=== PATIENT | male | born 1970 | race Caucasian/White ===

== ENCOUNTER 2024-07-20 10:34 | Emergency (ER) | payer SELFPAY ==
[2024-07-20 10:39] VITALS: PULSE 110; TEMP 36.8; O2SAT 99; BMI 19.4
[2024-07-20 11:10] VITALS: BP 150/100
--- NOTE | 2024-07-20 11:20 | ED_ITS ---
HPI HPI - General Adult General Chief complaint: Back Pain/Injury Stated complaint: BACK PAIN Time Seen by Provider: 07/20/24 11:12 Source: patient Mode of arrival: walk-in History of Present Illness HPI narrative: Patient is a 53-year-old male who is presenting to the ER today with chief complaint of acute on chronic lower bilateral back pain. Patient has just driven here from [place] for the past 2 days. Patient left Tuesday morning, he arrived locally late last night. He checked into a [employer], soaked in a hot tub, and laid down. Patient is coming in because his pain is worse today than it is last night. Patient was driving home from [place]. Patient has a history of rods and screws in his lumbar spine. Patient lived in [place] for lengthy [place] time. Patient is now driving back and moving to the local area. Patient did have a PCP in [place]. The PCP in [place] was going to establish him with a spinal neurosurgeon and he needs to have additional surgery on his lower back. Patient took 2 Aleve last evening, nothing today for pain. Patient's son is at bedside, he can drive patient home. Patient has no loss of bowel or bladder, no radiculopathy or paresthesias into lower extremities. Patient had no fall, no injury. Patient believes that his acute on chronic pain has started secondary to sitting in the car for lengthy time Tuesday and driving home from [place]. Patient also has nausea secondary to pain. No chest pain shortness of breath abdominal pain. No signs of saddle esthesia cauda equina. All systems are negative except as noted/marked. All systems reviewed and otherwise negative. Nurses note and vital signs reviewed and patient is not hypoxic. Patient is hypertensive, no headache, no chest pain or shortness of breath. No syncopal episodes. General: The patient appears well and in no apparent distress. Patient is resting uncomfortably on cart. Patient is not toxic, lethargic, or listless Skin: Warm, dry, no pallor noted. There is no rash noted. No petechiae, purpura. Head: Normocephalic, atraumatic Eye: Normal conjunctiva, no drainage, EOMI. PERRL Ears, Nose, Mouth, and Throat: oral mucosa is moist. Nares patent. Mouth without vesicles. Cardiovascular: Regular Rate and Rhythm, no murmur, gallop, rub Respiratory: Patient is in no distress, no accessory muscle use, lungs are clear to auscultation, no wheezing, rales or rhonchi Back: Moderate tenderness to palpation to bilateral lumbar paraspinal area, soft tissue bogginess, no rash, chronic mild mid lumbar tenderness to palpation from L2 approximately S1, no step-off, otherwise the rest of his back is non-tender, no CVA tenderness bilaterally to percussion. No CT LS midline pain besides above a forementioned GI: no tenderness to palpation, no masses appreciated. No rebound, guarding, or rigidity noted. No distention. No pulsatile mass, no flank pain bilateral. Positive straight leg raising test bilateral, no midepigastric tenderness palpation, patient denies any pain to penis or testicles, no saddle anesthesia to lower extremities Musculoskeletal: Patient has full range of motion of all of the extremities, no motor, sensory, or focal neurological deficits Neurological: A&O x4, normal speech Psychiatric: Cooperative Related Data Home Medications ?Medication ?Instructions ?Recorded ?Confirmed lisinopril 10 mg tablet 10 mg PO DAILY 07/20/24 0512/06 Previous Rx's ?Medication ?Instructions ?Recorded hydrocodone 5 mg-acetaminophen 325 1 tab PO Q4H PRN pa in #6 tabs 07/20/24 mg tablet methocarbamol 500 mg tablet 500 mg PO Q8H PRN muscle p ain #10 07/20/24 tabs ondansetron 4 mg disintegrating 4 mg PO Q4H PRN nausea and 07/20/24 tablet vomiting 3 days #6 tabs Allergies Allergy/AdvReac Type Severity Reaction Status Date / Time No Known Drug Allergies Allergy Verified 07/20/24 10:38 Opioid HPI Opioid Management Most Recent Opioid Data: Last Pain Scale 10 Today, 11:26 Last MAR Pain Assessment Today, 11:25 PFSH PFSH Social History Little interest or pleasure in doing things: not at all Feeling down, depressed, or hopeless: not at all Exam Constitutional Vital Signs, click to edit/add: Last Vital Signs Temp 98.2 F 07/20/24 10:39 Pulse 110 H 07/20/24 10:39 Resp 20 07/20/24 10:39 BP 150/100 H 07/20/24 11:10 Pulse Ox 99 07/20/24 10:39 O2 Del Method Room Air 07/20/24 10:39 Course Vital Signs Vital signs: Vital Signs Temperature 98.2 F 07/20/24 10:39 Pulse Rate 110 H 07/20/24 10:39 Respiratory Rate 20 07/20/24 10:39 Pulse Oximetry 99 07/20/24 10:39 Oxygen Delivery Method Room Air 07/20/24 10:39 Temperature 98.2 F 07/20/24 10:39 Pulse Rate 110 H 07/20/24 10:39 Respiratory Rate 20 07/20/24 10:39 Blood Pressure 150/100 H 07/20/24 11:10 Pulse Oximetry 99 07/20/24 10:39 Oxygen Delivery Method Room Air 07/20/24 10:39 Medical Decision Making MDM Narrative Medical decision making narrative: Patient seen and examined: Acute on chronic lumbar pain secondary to 2-day drive home from [place] Differential diagnosis includes but is not limited to: Lumbar pain, lumbar strain, lumbar fracture, kidney stone, UTI, pyelonephritis Shared decision making: I discussed with the patient the necessary laboratory findings and radiological findings. Social barriers to healthcare: There are no food insecurities, there is no issue with transportation, there are no insurance barriers. Disposition: I discussed with the patient treating symptoms. Patient states he believes this is soft tissue muscle skeletal pain agrees that no imaging is needed at this time. Patient is going to be reestablished with his PCP and be referred to the spinal surgeon that he is going to see previously because he knows that he needs another back surgery. Patient was given Dr. Shirley name and number. Patient has no signs or symptoms of saddle anesthesia or cauda equina. No pulsatile mass, no abdominal pain. Patient has nausea secondary to pain. Patient has his PCP that he is in a call again. Patient was living in [place] for a while, patient had some insurance issues. Patient is now taking care of his aunts 3 rental properties and was given a house that he is not living in locally. Discharge Plan Discharge Chief Complaint: Back Pain/Injury Clinical Impression: Lumbar pain Patient Disposition: Home, Self-Care Time of Disposition Decision: 11:16 Condition: Fair Prescriptions / Home Meds: New methocarbamol 500 mg tablet 500 mg PO Q8H PRN (Reason: muscle pain) Qty: 10 0RF hydrocodone-acetaminophen 5-325 mg tablet 1 tab PO Q4H PRN (Reason: pain) Qty: 6 0RF ondansetron 4 mg tablet,disintegrating 4 mg PO Q4H PRN (Reason: nausea and vomiting) 3 Days Qty: 6 0RF No Action lisinopril 10 mg tablet 10 mg PO DAILY Print Language: Kuwaiti Instructions: Low Back Strain (ED), Acute Low Back Pain (ED), Lower Back Exercises (ED) Additional Instructions: Use ice 20 minutes on, 20 minutes off. Do not use heat. Do this for the next 3 to 5 days. Do lumbar stretching exercises 3-4 times a day for the next 5 to 7 days. Alternate Tylenol and either Motrin, Advil, or ibuprofen every 4 hours to help with pain. If you are having severe pain, substitute a [place] tablet instead of Tylenol. Do not take Tylenol and [place] at the same time, you may actually take too much Tylenol at 1 setting or in 1 day. Maximum Tylenol dose of Tylenol is 3000 mg a day. Maximum dose of either Motrin, Advil, or ibuprofen is 2400 mg a day. Referrals: Physician,Non-Staff, [Primary Care Provider] - 1 week Camille Tao MD [Physician] - 1 week
[2024-07-20] MEDS: HYDROCODONE/ACET 5-325 MG TABLET 1 TAB PO (11:25)
[2024-07-20] MEDS: ORPHENADRINE 60 MG/2 ML VIAL IM (11:26)
[2024-07-20] MEDS: KETOROLAC TROMETHAMINE 60 MG/2 ML VIAL IM (11:26)
[2024-07-20] MEDS: ONDANSETRON 4 MG RAPDIS TABLET SL (11:30)
== END 2024-07-20 11:45 | disposition home or self-care (01) ==
PROVIDERS: Emergency Provider Emergency Medicine
DX: M54.50 Low back pain, unspecified (principal); I10 Essential (primary) hypertension
CPT/HCPCS: 96372; 99284; J1885; J2360; Q0162

== ENCOUNTER 2024-10-09 08:39 | Emergency (ER) | payer SELFPAY ==
[2024-10-09 08:42] VITALS: BP 200/100; PULSE 76; TEMP 36.6; O2SAT 98; BMI 18.7
--- NOTE | 2024-10-09 09:00 | XR_ITS ---
The [address] [address] Patient Name: PRITI ZAIDI MRN: [id number] date: 1970 Sex: M Assigned Patient Location: ER Current Patient Location: ER Accession/Order Number: [id number] Exam Date: 10/09/2024 09:46 Report Date: 10/09/2024 09:48 At the request of: CADEN MCDANIEL MD Procedure: XR lumbar spine 2-3V LUMBAR SPINE - 2 views COMPARISON: None CLINICAL DATA: Chronic back pain with recent worsening. No specific injury. Prior fusion. AP and lateral views were obtained. There is mild dextroscoliotic curvature. There is prior laminectomy and fusion with posterior rods, pedicle screws and interbody fusion device at L4-5. The hardware appears intact and in appropriate position. No acute compression fractures are identified. There is slight multilevel retrolisthesis throughout the unfused vertebral levels. There is disc space narrowing at L1-2 and L3-4. Endplate spurring is seen. There is lower lumbar facet disease. The SI joints are intact. No paraspinal soft tissue abnormalities are noted. XR/XR lumbar spine 2-3V IMPRESSION: SCOLIOSIS WITH POSTOPERATIVE AND DEGENERATIVE CHANGES. NO ACUTE BONY FINDINGS. Impression dictated by: Yovana Maradiaga M.D. 10/09/2024 9:48 AM Dictation Location: [place] [address] Electronically authenticated by: [id number] Y Date: 10/09/2024 09:48
--- NOTE | 2024-10-09 09:01 | ED.GENADUL1 ---
HPI HPI - General Adult General Chief complaint: Back Pain/Injury Stated complaint: BACK PAIN Time Seen by Provider: 10/09/24 08:57 Source: patient Mode of arrival: walk-in Limitations: no limitations History of Present Illness HPI narrative: 53-year-old male presented to the emergency department for lower back pain for the last week. Patient gives no history of any injury. 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 He has a history of back issues and had previous surgery. The pain goes into his right buttock. No weakness or numbness. The pain is worse in certain positions. Related Data Home Medications ?Medication ?Instructions ?Recorded ?Confirmed lisinopril 10 mg tablet 10 mg PO DAILY 07/20/24 10/09/24 Previous Rx's ?Medication ?Instructions ?Recorded methocarbamol 500 mg tablet 500 mg PO Q8H PRN muscle pain #10 07/20/24 tabs hydrocodone 5 mg-acetaminophen 325 1 tab PO Q6H PRN pain 5 days #20 10/09/24 mg tablet tabs methocarbamol 750 mg tablet 750 mg PO Q8H #20 tabs 10/09/24 Allergies Allergy/AdvReac Type Severity Reaction Status Date / Time No Known Drug Allergies Allergy Verified 10/09/24 08:45 Opioid HPI Opioid Management Most Recent Opioid Data: Last Pain Scale 10 Today, 09:07 Last MAR Pain Assessment Today, 09:07 Review of Systems ROS Narrative A ten point review of systems is negative except as noted above. PFSH PFSH Social History Little interest or pleasure in doing things: not at all Feeling down, depressed, or hopeless: not at all Exam Narrative Exam Narrative: Nurses note and vital signs reviewed and patient is not hypoxic. General: The patient appears uncomfortable. Skin: Warm, dry, no pallor noted. There is no rash noted. Head: Normocephalic, atraumatic Eye: Normal conjunctiva, no drainage Ears, Nose, Mouth, and Throat: oral mucosa is moist. Nares patent. Cardiovascular: Regular Rate and Rhythm Respiratory: Patient is in no distress, no accessory muscle use, lungs are clear to auscultation, no wheezing, rales or rhonchi Back: No bruise or rash. GI: Soft and nontender Musculoskeletal: The patient has no evidence of calf tenderness, no pitting edema, symmetrical pulses noted bilaterally Neurological: A&O, normal speech Psychiatric: Cooperative Constitutional Vital Signs, click to edit/add: Last Vital Signs Temp 97.9 F 10/09/24 08:42 Pulse 76 10/09/24 08:42 Resp 18 10/09/24 08:42 BP 200/100 H 10/09/24 08:42 Pulse Ox 98 10/09/24 08:42 O2 Del Method Room Air 10/09/24 08:42 Course Vital Signs Vital signs: Vital Signs Temperature 97.9 F 10/09/24 08:42 Pulse Rate 76 10/09/24 08:42 Respiratory Rate 18 10/09/24 08:42 Blood Pressure 200/100 H 10/09/24 08:42 Pulse Oximetry 98 10/09/24 08:42 Oxygen Delivery Method Room Air 10/09/24 08:42 Temperature 97.9 F 10/09/24 08:42 Pulse Rate 76 10/09/24 08:42 Respiratory Rate 18 10/09/24 08:42 Blood Pressure 200/100 H 10/09/24 08:42 Pulse Oximetry 98 10/09/24 08:42 Oxygen Delivery Method Room Air 10/09/24 08:42 Medical Decision Making MDM Narrative Medical decision making narrative: X-ray findings were discussed with the patient and he will follow-up with his physician. Treatment diagnosis and follow-up were discussed thoroughly. Differential Diagnosis Differential Diagnosis: Degenerative disc disease, lumbar radiculopathy, compression fracture Imaging Data Lumbar x-rays: Radiologist's impression: ITS Impressions Lumbar Spine X-Ray 10/09/24 09:00 IMPRESSION: SCOLIOSIS WITH POSTOPERATIVE AND DEGENERATIVE CHANGES. NO ACUTE BONY FINDINGS. Impression dictated by: Yovana Maradiaga M.D. 10/09/2024 9:48 AM Dictation Location: [place] [address] Electronically authenticated by: [id number] Y Date: 10/09/2024 09:48 Discharge Plan Discharge Chief Complaint: Back Pain/Injury Clinical Impression: Low back pain Patient Disposition: Home, Self-Care Time of Disposition Decision: 09:53 Condition: Good Mode of Transportation: Private Vehicle Prescriptions / Home Meds: New hydrocodone-acetaminophen 5-325 mg tablet 1 tab PO Q6H PRN (Reason: pain) 5 Days Qty: 20 0RF methocarbamol 750 mg tablet 750 mg PO Q8H Qty: 20 0RF No Action lisinopril 10 mg tablet 10 mg PO DAILY methocarbamol 500 mg tablet 500 mg PO Q8H PRN (Reason: muscle pain) Qty: 10 0RF Print Language: Slovak Instructions: Acute Low Back Pain (ED) Referrals: Magda Johnson [Primary Care Provider] - 1 week
[2024-10-09] MEDS: ORPHENADRINE 60 MG/2 ML VIAL IM (09:07)
[2024-10-09] MEDS: KETOROLAC TROMETHAMINE 60 MG/2 ML VIAL IM (09:07)
[2024-10-09 10:00] VITALS: BP 160/88
== END 2024-10-09 10:00 | disposition home or self-care (01) ==
PROVIDERS: Emergency Provider Emergency Medicine; PCP Nurse Practitioner Family
DX: M54.50 Low back pain, unspecified (principal); M41.86 Other forms of scoliosis, lumbar region; M51.369 Other intervertebral disc degeneration, lumbar region without mention of lumbar back pain or lower extremity pain
CPT/HCPCS: 72100; 96372; 99284; J1885; J2360

== ENCOUNTER 2024-10-15 13:34 | Outpatient (OUT) | payer MEDICAID, SELFPAY ==
--- NOTE | 2024-10-15 14:47 | PM.CN ---
Consult Note: HPI Data of Consult Patient: new to practice Consult date: 10/15/24 Requesting Physician: Van Jones MD Primary Care Provider: Magda Johsnon Consult Narrative Reason for consult: low back pain Narrative: 53yom who presents for evaluation. worsening low back pain, previous history of lumbar fusion. states that pain has been worsening in past several months. lumbar xr reviewed, shows multilevel degenerative changes above and below hardware at l4-5, but no acute findings. uses thc pen 4x/day. uses robaxin. denies adverse med side effects. cc:: CC: Van Jones MD Review of Systems ROS Status of ROS 10 or more systems reviewed and unremarkable except as noted in history and below PFSH PFSH Social History Little interest or pleasure in doing things: not at all Feeling down, depressed, or hopeless: not at all Meds Home Medications and Allergies Home Medications ?Medication ?Instructions ?Recorded ?Confirmed ?Type lisinopril 10 mg tablet 10 mg PO DAILY 07/20/24 10/09/24 History methocarbamol 500 mg tablet 500 mg PO Q8H PRN muscle pain #10 07/20/24 10/09/24 Rx tabs hydrocodone 5 mg-acetaminophen 325 1 tab PO Q6H PRN pain 5 days #20 10/09/24 Rx mg tablet tabs methocarbamol 750 mg tablet 750 mg PO Q8H #20 tabs 10/09/24 Rx Allergies Allergy/AdvReac Type Severity Reaction Status Date / Time No Known Drug Allergies Allergy Verified 10/09/24 08:45 Exam Narrative Exam Narrative: Psych-alert and oriented x 3. Attentive and appropriate, constitutionally normal, displays normal mood and affect per situation.? There are no obvious deficits in memory, reasoning, or intellect.? Skin-no obvious rashes, bruising, erythema noted to the patient's area of pain. Extremities- extremities are warm with minimal edema and palpable pulses. Lumbar-no significant tenderness to palpation noted in the lumbar spine and paraspinal musculature.? Pain is elicited with extension, and lateral rotation of the lumbar spine. Range of motion is slightly diminished with these motions due to pain. Coordination remains intact.? Gait remains non-antalgic. Assessment and Plan Assessment and Plan (1) Low back pain: Qualifiers: Chronicity: chronic Back pain laterality: unspecified Sciatica presence: with sciatica Sciatica laterality: sciatica of right side Qualified Code(s): M54.41 - Lumbago with sciatica, right side; G89.29 - Other chronic pain Plan 53yom who presents for evaluation. failed conservative measures. imaging reviewed, as noted above. discussed that given his symptoms and surgical hx, would be prudent to obtain lumbar ct myelogram for further information. also discussed that i would order lyrica 50mg tid and lodine 400mg bid prn, as well as medrol dosepak, for pain relief. however, patient states that he did not want to waste his time with the above plan, as he was interested in opioid therapy only. discussed that given his thc use 4x/day, he would not be a candidate for opioid therapy. patient respectfully declined following through with our care plan. may follow up if he desires.
== END 2024-10-15 13:35 | disposition home or self-care (01) ==
LOC: PM 13:38
PROVIDERS: PCP Nurse Practitioner Family; Visit Provider Anesthesiology
DX: M54.41 Lumbago with sciatica, right side (principal); G89.29 Other chronic pain
CPT/HCPCS: G0463

== ENCOUNTER 2025-02-05 13:26 | Outpatient (OUT) | payer MEDICAID, SELFPAY ==
--- NOTE | 2025-02-05 13:38 | CT_ITS ---
The [address] [address] Patient Name: PRITI ZAIDI MRN: [id number] date: 1970 Sex: M Assigned Patient Location: CT Current Patient Location: CT Accession/Order Number: [id number] Exam Date: 02/05/2025 13:48 Report Date: 02/05/2025 14:22 At the request of: LACHELLE CHAHAL APRN Procedure: CT lumbar spine wo con CT lumbar spine wo con 02/05/2025 1:57 PM History:Chronic low back pain radiating into both hips. TECHNIQUE: Multi detector CT axial slices of the lumbar spine were obtained without IV contrast. Volumetric acquisition sagittal, coronal, and 3-D reconstructions were performed and reviewed on a separate workstation. CT was performed with one or more of the following dose reduction techniques: Automated exposure control, adjustment of the mA and/or kV according to patient size, or use of iterative reconstruction technique. COMPARISON: Lumbar spine 10/09/2024. FINDINGS: Posterior hardware fixation L4-L5 without hardware complication. Vertebral body heights appear maintained. Endplate and facet joint degenerative changes with moderate disc space narrowing L1-L2. There is approximately 3 mm retrolisthesis of L1 on L2. SI joints demonstrate degenerative change. No paraspinal mass. Visualized retroperitoneum demonstrates no acute findings. CT/CT lumbar spine wo con IMPRESSION: No acute findings. No hardware complication. Moderate degenerative disc disease L1-L2. Impression dictated by: Luis Garsia Jr., D.O. 02/05/2025 2:22 PM Dictation Location: [place] [address] Electronically authenticated by: [id number] Y Date: 02/05/2025 14:22
== END 2025-02-05 13:27 | disposition home or self-care (01) ==
PROVIDERS: PCP Nurse Practitioner Family; Visit Provider Nurse Practitioner Family
DX: M51.362 Other intervertebral disc degeneration, lumbar region with discogenic back pain and lower extremity pain (principal); M54.16 Radiculopathy, lumbar region; M48.062 Spinal stenosis, lumbar region with neurogenic claudication
CPT/HCPCS: 72131; 76376

== ENCOUNTER 2025-03-02 13:59 | Emergency (ER) | payer SELFPAY ==
--- OUTSIDE RECORDS SUMMARY | 2025-02-19 15:40 | XMS_ITS | Encounter Summary ---
Author Organization [facility] tem Address [id number] [address] [place] [address] Care Team Providers Care Photo Lab Technician Name Role Phone Angel Gutierrez CARPET TECHNICIAN-PSYCHOLOGY TECHNICIAN Primary Care Provider + Reason for Visit * ReasonComments2 week f/u Encounter Details DateTypeDepartmentCare Team (Latest Contact Info)Cvafuumesgm97/09/2025 3:40 PM ESTOffice Visit [facility] [address] [place] [address] Angel Gutierrez, CARPET TECHNICIAN-PSYCHOLOGY TECHNICIAN [address] [place] [address] Degenerative disc disease (DDD) of lumbar region with discogenic back pain and leg pain (Primary Dx); Lumbar radiculopathy; Spinal stenosis, lumbar region with neurogenic claudication; Primary hypertension Social History Tobacco UseTypesPacks/DayYears UsedDateSmoking Tobacco: Every DayCigarettes Smokeless Tobacco: NeverAlcohol UseStandard Drinks/WeekCommentsNever0 (1 standard drink = 0.6 oz pure alcohol)PHQ-2AnswerDate RecordedTotal Score0 5AUDIT-CAnswerDate RecordedQ1: How often do you have a drink containing alcohol?Never01/29/2025Q2: How many drinks containing alcohol do you have on a typical day when you are drinking?Patient does not drink01/29/2025Q3: How often do you have six or more drinks on one occasion?Never5ChildcareAnswer Date DnzpbnxsIjrvzscmjWxljwyd92/12/2019EmploymentAnswerDate RecordedEmployment Rzhdgja3508/23/2018Hunger ScreeningAnswerDate RecordedWithin the past 12 months we worried whether our food would run out before we got money to buy more.Never True02/19/2025Within the past 12 months the food we bought just didn't last and we didn't have money to get more.Never True02/19/2025Sex and Gender Information ValueDate RecordedSex Assigned at BirthNot on fileLegal PrjVhhq0210/17/2014 11:38 AM EDTGender IdentityNot on fileSexual OrientationNot on filedocumented as of this encounter Last Filed Vital Signs Vital SignReadingTime TakenCommentsBlood Ccdpxpmw734/9802/19/2025 3:30 PM EST Rlufm470602/19/2025 3:30 PM FNFWwfcopdcdmu58.4 ??C (97.6 ??F)02/19/2025 3:30 PM ESTRespiratory Baod933604/22/2024 3:30 PM ESTOxygen Kguwaxyrik360%02/19/2025 3:30 PM ESTInhaled Oxygen Concentration--Ylpoel16.2 kg (126 lb)02/19/2025 3:30 PM EST Fbcspo235.8 cm (5' 10 )02/19/2025 3:30 PM ESTBody Mass Index18.0802/19/2025 3:30 PM ESTdocumented in this encounter Functional Status * BPAnswerDate of SeybbgvqabMsxdhj194/9802/19/2025 3:30 PM Amy Holder CMA * TempAnswerDate of EvacqckjlxFdsfba03.612 3:30 PM Amy Holder CMA * Temp srcAnswerDate of UeoetkoxslZioteeYttjonav14/09/2025 3:30 PM Amy Holder CMA * PulseAnswerDate of YdkasevvwoOuenrr8835/09/2025 3:30 PM Amy Holder CMA * RespAnswerDate of TxwmwlzreuXzagoh0026/09/2025 3:30 PM Amy Holder CMA * TiJ8FjvnfhRptl of KovqggqlrlPwzrne66075 3:30 PM Amy Holder CMA * HeightAnswerDate of WsmlhtrzncFnwobi0963/09/2025 3:30 PM Amy Holder CMA * WeightAnswerDate of BdzxmjvlczFatsvq495089/09/2025 3:30 PM Amy Holder CMA * Food InsecurityQuestionAnswerDate of AssessmentAuthorWithin the past 12 months the food we bought just didn't last and we didn't have money to get more.Never True02/19/2025 3:31 PM Amy Holder CMAWithin the past 12 months we worried whether our food would run out before we got money to buy more.Never True02/19/2025 3:31 PM Amy Holder CMA * BEE (kcal)AnswerDate of LrpkjrkqvbFmjjcc374367/09/2025 3:30 PM Amy Holder CMA * BSA (Calculated - sq m)AnswerDate of AssessmentAuthor1.6802/19/2025 3:30 PM Amy Holder CMA * BMI (Calculated)AnswerDate of RondlpvvisAtebls68.112 3:30 PM Amy Holder CMA * Weight in (lb) to have BMI = 25AnswerDate of DmxnjvoqzjZnizkb330.9104/22/2024 3:30 PM Amy Holder CMA * Vitals TimerQuestionAnswerDate of AssessmentAutMartin [facility] Hospital Vitals TimerYes 02/19/2025 3:30 PM Amy Holder CMA * Over the last 2 weeks, how often have you been bothered by any of the following problems?QuestionAnswerDate of AssessmentAuthorIf you checked off any problems, how difficult have these problems made it for you to do your work,take care of things at home, or get along with other people?Not difficult at all02/19/2025 3:31 PM Amy Holder CMALittle interest or pleasure in doing sbxytm007/09/2025 3:31 PM Aym Holder CMAFeeling down, depressed, or wynwbarl608/09/2025 3:31 PM Amy Holder CMATotal Cbcnl22504/22/2024 3:31 PM Amy Holder CMA * BPAnswerDate of PmfltrjfrrUfabko026/9812 3:30 PM Amy Holder CMA * TempAnswerDate of BkxescrevoGbzeeh43.6104/22/2024 3:30 PM Amy Holder CMA * Temp srcAnswerDate of DnupdffhtmBuzunjGeeggojp59/09/2025 3:30 PM Amy Holder CMA * PulseAnswerDate of XuzmqshktvVbcztv7660/09/2025 3:30 PM Amy Holder CMA * RespAnswerDate of GhwnmjabuhBchyuw3546/09/2025 3:30 PM Amy Holder CMA * TyH1WmyjsjMwgf of RcdwghjhgmTxeanz63757/09/2025 3:30 PM Amy Holder CMA * HeightAnswerDate of EounneozqqIrrsmn8126/09/2025 3:30 PM Amy Holder CMA * WeightAnswerDate of JrgdpvpwwcSztwqu474592/09/2025 3:30 PM Amy Holder CMA * BEE (kcal)AnswerDate of AaarmrbbgkMfbmdx436354/09/2025 3:30 PM Amy Holder CMA * BSA (Calculated - sq m)AnswerDate of AssessmentAuthor1.6812 3:30 PM Amy Holder CMA * BMI (Calculated)AnswerDate of CsbqkazfhlXhxqit30.112 3:30 PM Amy Holder CMA * Weight in (lb) to have BMI = 25AnswerDate of VniqcptabfQwzzkz388.912 3:30 PM Amy Holder CMA documented as of this encounter Mental Status * BPAnswerEntry GxwrHywioo161/9802/19/2025 3:30 PM ESTAmy West CMA * TempAnswerEntry MhliMsjrfm62.612 3:30 PM ESTBoggAmy redding CMA * Temp srcAnswerEntry FqpeXgcrvjJeohfpno28/09/2025 3:30 PM ESTBoggAmy redding CMA * PulseAnswerEntry OmlgOkodaz3969/09/2025 3:30 PM ESTBoggsAmy CMA * RespAnswerEntry DojyVjwkqi2334 3:30 PM ESTBoggAmy redding CMA * LgU2KeziolZbzwl GpfwYhzbur04323/09/2025 3:30 PM Aym Holder CMA documented in this encounter Progress Notes * Angel Gutierrez, CARPET TECHNICIAN-PSYCHOLOGY TECHNICIAN - 02/19/2025 3:40 PM EST IM PROGRESS NOTE Patient - Antonio Kern Age - 54 y.o. - 1970 Subjective The following portions of the patient's history were reviewed and updated as appropriate: allergies, current medications, past family history, past medical history, past social history, past surgicalhistory and problem list. He is here for follow up back pain. He has been getting oxycodone for the last 3 weeks. His qualityof life has started to improve as he has been able to get a part-time job. He is also eating bettersince he is not in so much pain. He has been requiring more than 1 pill every 6 hours over the lastweek. He states he is taking 2 of them in the morning when he 1st wakes up and then splitting the ot her 2 up throughout the rest of the day. He states that now he is working his back is a little worse and he feels like he could use a 2nd pill after work to help with the pain. Review of Systems Constitutional: Negative for activity change, appetite change, fever and unexpected weight change. HENT: Negative for hearing loss, tinnitus and trouble swallowing. Eyes: Negative for visual disturbance. Respiratory: Negative for cough, shortness of breath and wheezing. Cardiovascular: Negative for chest pain and palpitations. Gastrointestinal: Negative for abdominal distention, abdominal pain, diarrhea, nausea and vomiting. Genitourinary: Negative for dysuria. Musculoskeletal: Positive for arthralgias, back pain, gait problem and myalgias. Skin: Negative for rash. Neurological: Negative for dizziness, syncope, facial asymmetry, speech difficulty, weakness, light-headedness, numbness and headaches. Psychiatric/Behavioral: Positive for sleep disturbance. Exam BP (!) 160/98 (BP Site: Left Arm, BP Postition: Sitting, BP CUFF SIZE: S (7-9 inches)) Pulse 71 Temp 36.4 ??C (97.6 ??F) (Tympanic) Resp 18 Ht 177.8 cm (5' 10 ) Wt 57.2 kg (126 lb) SpO2 100% BMI 18.08 kg/m?? Physical Exam Vitals and nursing note reviewed. Constitutional: General: He is not in acute distress. HENT: Mouth/Throat: Mouth: Mucous membranes are moist. Eyes: Conjunctiva/sclera: Conjunctivae normal. Pupils: Pupils are equal, round, and reactive to light. Cardiovascular: Rate and Rhythm: Normal rate and regular rhythm. Pulses: Normal pulses. Heart sounds: No murmur heard. Pulmonary: Effort: Pulmonary effort is normal. Breath sounds: No wheezing. Abdominal: Palpations: Abdomen is soft. Tenderness: There is no abdominal tenderness. Musculoskeletal: Cervical back: Normal range of motion. Thoracic back: Spasms, tenderness and bony tenderness present. Lumbar back: Swelling, spasms, tenderness and bony tenderness present. Decreased range of motion. Negative right straight leg raise test and negative left straight leg raise test. Right lower leg: No edema. Left lower leg: No edema. Skin: General: Skin is warm and dry. Capillary Refill: Capillary refill takes less than 2 seconds. Neurological: General: No focal deficit present. Mental Status: He is alert and oriented to person, place, and time. Psychiatric: Mood and Affect: Mood normal. Behavior: Behavior normal. Meds Current Outpatient Medications: acetaminophen (TYLENOL EXTRA STRENGTH) 500 mg tablet, Take 2 tablets (1,000 mg total) by mouth every 6 (six) hours as needed for pain., Disp: 100 tablet, Rfl: 2 albuterol (PROVENTIL HFA;VENTOLIN HFA) 90 mcg/actuation inhaler, Inhale 2 puffs every 6 (six) hoursas needed for wheezing., Disp: 18 g, Rfl: 11 albuterol (PROVENTIL,VENTOLIN) 2.5 mg /3 mL (0.083 %) nebulizer solution, Inhale 3 mL (2.5 mg total) by nebulization every 4 (four) hours as needed for wheezing., Disp: 75 mL, Rfl: 2 cyclobenzaprine (FLEXERIL) 10 mg tablet, Take 1 tablet (10 mg total) by mouth every 8 (eight) hoursas needed for muscle spasms., Disp: 30 tablet, Rfl: 1 lisinopriL (PRINIVIL,ZESTRIL) 20 mg tablet, Take 1 tablet (20 mg total) by mouth in the morning., Disp: 30 tablet, Rfl: 2 naproxen (NAPROSYN) 500 mg tablet, Take 1 tablet (500 mg total) by mouth in the morning and 1 tablet (500 mg total) in the evening. Take with meals., Disp: 60 tablet, Rfl: 2 oxyCODONE (ROXICODONE) 5 mg immediate release tablet, Take 2 tablets (10 mg total) by mouth every 6(six) hours as needed for pain for up to 7 days. Max Daily Amount: 40 mg, Disp: 56 tablet, Rfl: 0 Lab Results No visits with results within 1 Month(s) from this visit. Latest known visit with results is: No results found for any previous visit. Other Testing No results found. ASSESSMENT & PLAN 1. Degenerative disc disease (DDD) of lumbar region with discogenic back pain and leg pain (Primary) -continue naproxen b.i.d. -continue with Tylenol as needed for pain -oxycodone for breakthrough pain and dose increase to 10 mg - oxyCODONE (ROXICODONE) 5 mg immediate release tablet; Take 2 tablets (10 mg total) by mouth every6 (six) hours as needed for pain for up to 7 days. Max Daily Amount: 40 mg Dispense: 56 tablet; Refill: 0 2. Lumbar radiculopathy -continue range of motion exercises 3. Spinal stenosis, lumbar region with neurogenic claudication -increase oxycodone to 10 mg every 6 hours -appreciate spine care input to help with pain management that has nonnarcotic or at least as little as necessary to control his pain. - oxyCODONE (ROXICODONE) 5 mg immediate release tablet; Take 2 tablets (10 mg total) by mouth every6 (six) hours as needed for pain for up to 7 days. Max Daily Amount: 40 mg Dispense: 56 tablet; Refill: 0 4. Primary hypertension -elevated today again likely due to increase pain -we will hold off on increasing lisinopril until follow-up visit OARRS/MAPPS was reviewed by KEYANA Gatica today. There was not any indication of medication diversion, or non-compliance. Return in about 2 weeks (around 03/05/2025). NA [facility] Office: [phone] This note is dictated with the use of M*Modal. Please note that this dictation was completed with computer voice recognition software. Quite often unanticipated grammatical, syntax, homophones, and other interpretive errors are inadvertently transcribed by the computer software. Please disregard these errors. Please excuse any errors that have escaped final proofreading. KEYANA Gatica 02/19/25 1631 documented in this encounter Plan of Treatment DateTypeDepartmentCare Team (Latest Contact Info)Bbdlgqrikee42/22/2025 10:30 AM ESTOffice Visit [facility] [address] [place] [id number] Angel Gutierrez APRN-CNP [address], [address] [address] 03/05/2025 9:00 AM ESTOffice Visit [facility] [address] [place] [address] Hunter Johnston, PA [address] [place] [address] documented as of this encounter Visit Diagnoses Diagnosis Degenerative disc disease (DDD) of lumbar region with discogenic back pain and leg pain- Primary Lumbar radiculopathy Thoracic or lumbosacral neuritis or radiculitis, unspecified Spinal stenosis, lumbar region with neurogenic claudication Primary hypertension Unspecified essential hypertension documented in this encounter Additional Health Concerns AssessmentNoted TimePHQ-9 Depression Total Score: 3:31 PM EST documented as of this encounter Care Teams Team MemberRelationshipSpecialtyStart DateEnd Date Angel Gutierrez, CARPET TECHNICIAN-PSYCHOLOGY TECHNICIAN [address] [place] [address] PCP - GeneralInternal Pvluhuvn56/18/25documented as of this encounter
--- OUTSIDE RECORDS SUMMARY | 2025-02-28 10:41 | XMS_ITS | Continuity of Care Document ---
Author Organization [facility] Address Unknown Care Team Providers Care Systems Trainer Name Role Phone NONE, XXXX Primary Care Physician Unavailab le Encounter FT_FIN [id number] Date(s): 02/28/25 - 02/28/25 [facility] [address] [place] [id number] Encounter Diagnosis Chronic back pain(Discharge Diagnosis) - 02/28/25 Other chronic pain(Discharge Diagnosis) - 02/28/25 Discharge Disposition: Home (Routine DC) Attending Physician: Inés Brownlee M.D. Encounter Type: Emergency Allergies, Adverse Reactions, Alerts No Known Allergies Treatment Plan Extracted from:Title:ED NoteAuthor:Gema Stark PA-CDate:02/28/25 1. Chronic back pain (M54.9: Dorsalgia, unspecified) Ordered: oxycodone, 5 mg = 1 cap(s), Oral, q6hr, PRN for pain, X 2 day(s), # 6 cap(s), Refills(s) 0, Pharmacy: [facility], 177, cm, 02/28/25 9:15:00 EST, Height/Length Dosing, 62.2, kg, 02/28/25 9:15:00 EST, Weight Dosing ?? Other chronic pain??(G89.29: Other chronic pain) ?? Orders: dexamethasone, 10 mg = 2.5 mL, Injection, Oral, Once, Stop date 02/28/25 9:45:00 EST, STAT, Start date 02/28/25 9:45:00 EST, 02/28/25 9:45:00 EST ketorolac, 15 mg = 1 mL, Injection, IntraMuscular, Once, Stop date 02/28/25 9:45:00 EST, STAT, Start date 02/28/25 9:45:00 EST, 02/28/25 9:45:00 EST morphine, 4 mg = 1 mL, Injection, IV Push, Once, Stop date 02/28/25 9:45:00 EST, STAT, Start date 02/28/25 9:45:00 EST, 02/28/25 9:45:00 EST Functional Status 02/28/25 MRSA/VRE/Other Nsbdpj-MlAiT-Pjfg Active/HxNoSymptomatic After Exposure to ContagionNoSymptomatic After Travel High-Risk AreaNoDroplet, Contact Isolation VerificationN/AAirborne,Contact Isolation VerificationN/A Functional Status Assessment AssessmentAssessment ComponentResultEffective DateFall risk total [Albert Fall Scale]15105/01/24Gait [Albert Fall Scale]Normal, bedrest, ygaitiev44/18/25History of falling; immediate or within 3 months [Albert Fall Scale]No02/28/25Mental status [Albert Fall Scale]Oriented to own spodvgg78/18/25Intravenous apparatus [Albert Fall Scale]No02/28/25Secondary diagnosis is rylqbkdSgi99/18/25Ambulatory aid [Albert Fall Scale]None, bedrest, wheelchair, nurse02/28/25 Medications Lidoderm 5% Patch 1 patch(es), Topical, Daily, 7 patch(es), Refill(s) 0, apply 12 hours on and 12 hours off daily Start Date: 01/19/25 Status: Ordered Medication Dispense Status: Completed Quantity: 7.0 Unit: patch(es) Total Allowed Fills: 1 Fills Dispensed: 0 Naprosyn 500 mg Tab 500 mg = 1 tab(s), Oral, BID, PRN for pain, # 20 tab(s), Refills(s) 0 Start Date: 11/27/24 Status: Ordered Medication Dispense Status: Completed Quantity: 20.0 Unit: tab(s) Total Allowed Fills: 1 Fills Dispensed: 0 naproxen 500 mg Tab 500 mg = 1 tab(s), Oral, BID, Take one tab by mouth two times a day, # 14 tab(s), Refills(s) 0 Start Date: 01/19/25 Status: Ordered Medication Dispense Status: Completed Quantity: 14.0 Unit: tab(s) Total Allowed Fills: 1 Fills Dispensed: 0 oxyCODONE 5 mg Cap 5 mg = 1 cap(s), Oral, q6hr, PRN for pain, X 2 day(s), # 6 cap(s), Refills(s) 0, Pharmacy: [facility], 177, cm, 02/28/25 9:15:00 EST, Height/Length Dosing, 62.2, kg, 02/28/25 9:15:00 EST, Weight Dosing Start Date: 02/28/25 Stop Date: 03/02/25 Status: Ordered Medication Dispense Status: Completed Quantity: 6.0 Unit: cap(s) Total Allowed Fills: 1 Fills Dispensed: 0 Indications: Dorsalgia, unspecified; Problem List ConditionConfirmationCourseEffective DatesStatusHealth StatusInformantSmoker1 ConfirmedActiveTobacco useConfirmedActivepatient 1Added secondary to documentation in Social History. Vital Signs Most recent to oldest [Reference Range]:1Temperature Oral [35.8-37.3 DegC]36.5 DegC (02/28/25 9:11 AM)Peripheral Pulse Rate [60-100 bpm]80 bpm (02/28/25 9:11 AM)Respiratory Rate [14-20 br/min]18 br/min (02/28/25 9:11 AM)Blood Pressure [89-139/59-89 mmHg]179/88mmHg *HI* (02/28/25 9:11 AM)SpO2 [89 %]97 % (02/28/25 9:11 AM) Social History Social History TypeResponseSmoking Mlqblv06 or more cigarettes (1/2 pack or more)/day in last 30 days entered on: 11/27/24Birth SexMaleSex RepresentationMale (finding) Status N/APregnancy StatusN/A Hospital Discharge Instructions Patient Education 02/28/2025 10:16:17 Chronic Back Pain, Idnf-ko-Omec Chronic Back Pain Chronic back pain is back pain that lasts longer than 3 months. The pain may get worse at certain times (flare-ups). There are things you can do at home to manage your pain. Follow these instructions at home: Watch for any changes in your symptoms. Take these actions to help with your pain: Managing pain and stiffness ??? If told, put ice on the painful area. You may be told to use ice for 24???48 hours after a flare-up starts. ??? Put ice in a plastic bag. ??? Place a towel between your skin and the bag. ??? Leave the ice on for 20 minutes, 2???3 times a day. ??? If told, put heat on the painful area. Do this as often as told by your doctor. Use the heat source that your doctor recommends, such as a moist heat pack or a heating pad. ??? Place a towel between your skin and the heat source. ??? Leave the heat on for 20???30 minutes. ??? If your skin turns bright red, take off the ice or heat right away to prevent skin damage. The risk of damage is higher if you cannot feel pain, heat, or cold. ??? Soak in a warm bath. This can help with pain. Activity ??? Avoid bending and other activities that make the pain worse. ??? When you stand: ??? Keep your upper back and neck straight. ??? Keep your shoulders pulled back. ??? Avoid slouching. ??? When you sit: ??? Keep your back straight. ??? Relax your shoulders. Do not round your shoulders or pull them backward. ??? Do not sit or ink printer one place for too long. ??? Take short rest breaks during the day. Lying down or standing is often better than sitting. Resting can help relieve pain. ??? When sitting or lying down for a long time, do some mild activity or stretching. This will helpto prevent stiffness and pain. ??? Get regular exercise. Ask your doctor what activities are safe for you. ??? You may have to avoid lifting. Ask your provider how much you can safely lift. ??? If you lift things: ??? Bend your knees. ??? Keep the weight close to your body. ??? Avoid twisting. Medicines ??? Take gatu-uvz-yxxrmyl and prescription medicines only as told by your doctor. ??? You may need to take medicines for pain and swelling. These may be taken by mouth or put on theskin. You may also be given muscle relaxants. ??? Ask your doctor if the medicine prescribed to you: ??? Requires you to avoid driving or using machinery. ??? Can cause trouble pooping (constipation). You may need to take these actions to prevent or treat trouble pooping: ??? Drink enough fluid to keep your pee (urine) pale yellow. ??? Take uwfd-etf-bvwpfxb or prescription medicines. ??? Eat foods that are high in fiber. These include beans, whole grains, and fresh fruits and vegetables. ??? Limit foods that are high in fat and sugars. These include fried or sweet foods. General instructions ??? Sleep on a firm mattress. Try lying on your side with your knees slightly bent. If you lie on your back, put a pillow under your knees. ??? Do not smoke or use any products that contain nicotine or tobacco. If you need help quitting, ask your doctor. Contact a doctor if: ??? Your pain does not get better with rest or medicine. ??? You have new pain. ??? You have a fever. ??? You lose weight quickly. ??? You have trouble doing your normal activities. ??? One or both of your legs or feet feel weak. ??? One or both of your legs or feet lose feeling (have numbness). Get help right away if: ??? You are not able to control when you pee or poop. ??? You have bad back pain and: ??? You feel like you may vomit (nauseous). ??? You vomit. ??? You have pain in your chest or your belly (abdomen). ??? You have shortness of breath. ??? You faint. These symptoms may be an emergency. Get help right away. Call 911. ??? Do not wait to see if the symptoms will go away. ??? Do not drive yourself to the hospital. This information is not intended to replace advice given to you by your health care provider. Make sure you discuss any questions you have with your health care provider. Document Revised: 10/18/2022 Document Reviewed: 10/18/2022 [employer] Patient Education ?? 2023 [employer]. Follow Up Care 02/28/2025 09:05:41 With:[facility] [phone] Address:Unknown When:03/03/2025 Physician Emergency department Note * Gema Stark PA-C: PERFORM Event Display: ED Note-Physician Authored Date: [id number] Basic Information Time Seen: Gema Stark PA-C ??02/28/2025 09:17 Chief Complaint chronic back pain. pcp is managing pain until pt sees pain management. no contract at this time. ptpain flare up. cant see dr until tuesday History of Present Illness 54-year-old male presents with bilateral chronic back pain and??waiting to get into pain management??next week, but he??ran out of his oxycodone as his family doctor only gave him a weeks worth.?? Hestates that he will not be back in until next week??and cannot get a prescription until then.?His family doctor office told him to come to the ER for pain medication.?? He is having a flareup of pa in, no specific injury.?? Denies injury. ??Denies bowel or bladder incontinence. ??Denies saddle anesthesia. ??Pain radiates down to knee bilaterally. ??Denies BLE swelling, temperature or sensation changes. Review of Systems Review of systems negative unless otherwise stated in HPI Physical Exam Vitals & Measurements T:??36.5?C(Oral)?? HR:??80(Peripheral)?? RR:??18?? BP:??179/88?? SpO2:??97%?? HT:??177??cm?? WT:??62.2??kg?? BMI:??19.85?? GENERAL: ALERT, NO ACUTE DISTRESS, talking in full and complete sentences SKIN: WARM, DRY, INTACT; NO CYANOSIS, NO RASH HEAD: NORMOCEPHALIC, ATRAUMATIC ENT: EYE: PERRL, EOMI, NORMAL CONJUNCTIVA NOSE: NARES PATENT MOUTH: ORAL MUCOSA MOIST THROAT: ??NO STRIDOR NECK: SUPPLE, TRACHEA MIDLINE, FROM RESPIRATORY: NON-LABORED RESPIRATIONS EXTREMITIES: FROM X 4, NORMAL STRENGTH, CAPILLARY REFILL INTACT NEUROLOGICAL: A&OX3 SPINE: Bilateral L4/5 paraspinal muscle tenderness,??NO VERTEBRAL TENDERNESS, NO STEP OFFS, NO MUSCLE SPASM PSYCHIATRIC: COOPERATIVE, APPROPRIATE MOOD AND AFFECT Medical Decision Making Likely flareup of chronic back pain.?? He was given 4 mg IM morphine, 15 mg IM Toradol and 10 mg p.o. Decadron for pain with a short prescription of??his oxycodone. OARRS??reviewed.?? He is to follow-up with family doctor and pain management.?? Afebrile, not tachycardic, not tachypneic, nontoxic-appearing, tolerating p.o. and ambulating at baseline and hemodynamically stable to be discharged home. ??Educated side effect of medications. Patient is instructed to return for any new or worsening symptoms. Answered all questions. ??Patient in agreement with treatment. Assessment/Plan 1.??Chronic back pain??(M54.9: Dorsalgia, unspecified) Ordered: oxycodone, 5 mg = 1 cap(s), Oral, q6hr, PRN for pain, X 2 day(s), # 6 cap(s), Refills(s) 0, Pharmacy: [facility], 177, cm, 02/28/25 9:15:00 EST, Height/Length Dosing, 62.2, kg, 02/28/25 9:15:00 EST, Weight Dosing ?? Other chronic pain??(G89.29: Other chronic pain) ?? Orders: dexamethasone, 10 mg = 2.5 mL, Injection, Oral, Once, Stop date 02/28/25 9:45:00 EST, STAT, Start date 02/28/25 9:45:00 EST, 02/28/25 9:45:00 EST ketorolac, 15 mg = 1 mL, Injection, IntraMuscular, Once, Stop date 02/28/25 9:45:00 EST, STAT, Start date 02/28/25 9:45:00 EST, 02/28/25 9:45:00 EST morphine, 4 mg = 1 mL, Injection, IV Push, Once, Stop date 02/28/25 9:45:00 EST, STAT, Start date 02/28/25 9:45:00 EST, 02/28/25 9:45:00 EST Disposition Plan Patient Discharge Condition Stable Discharge Disposition Home Discharge Prescription List Prescriptions oxyCODONE 5 mg Cap, 5 mg= 1 cap(s), Oral, q6hr, PRN Follow-up With When Contact Information [facility] [phone] In 3 days 03/03/2025 EST Additional Instructions: Patient Education Chronic Back Pain, Xtav-lj-Wsnw Attestation Patient seen and evaluated by the physician greenhouse assistant. Attending physician was present in the emergency department and supervised care. ?This visit was performed by both the physician and an APC. ??I performed all aspects of the MDM as documented. ?This report was transcribed using voice recognition software. ??Every effort was made to ensure accuracy, however, inadvertently computerized advertising material distributor mistakes may be present. ?I performed a substantive part of the MDM during the patient??s E/M visit.?I personally made or approved the documented management plan and acknowledge its risk of complications. ??(Independent Interpretation) My (EKG/X-Ray/US/CT as applicable) interpretation as above. ??(Discussion) Management/test interpretation discussed with APC. Problem List/Past Medical History Ongoing Smoker Historical No qualifying data Medications Inpatient dexamethasone 4 mg/mL Inj 1 mL, 10 mg= 2.5 mL, Oral, Once ketorolac 15 mg/mL Inj, 15 mg= 1 mL, IntraMuscular, Once morphine 4 mg/mL Inj, 4 mg= 1 mL, IV Push, Once Home Lidoderm 5% Patch, 1 patch(es), Topical, Daily Naprosyn 500 mg Tab, 500 mg= 1 tab(s), Oral, BID, PRN naproxen 500 mg Tab, 500 mg= 1 tab(s), Oral, BID oxyCODONE 5 mg Cap, 5 mg= 1 cap(s), Oral, q6hr, PRN Allergies No Known Allergies Social History Alcohol - Denies Alcohol Use, 01/19/2025 Substance Abuse - Denies Substance Abuse, 01/19/2025 Tobacco - High Risk, 01/19/2025 10 or more cigarettes (1/2 pack or more)/day in last 30 days Tobacco Use:., 11/27/2024 Lab Results No qualifying data available. Diagnostic Results No qualifying data available. Electronically Signed By: Gema Stark PA-C Date and Time Signed: 02/28/25 10:19 EST Electronically Co-Signed By: Inés Brownlee M.D. Date and Time Co-Signed: 02/28/25 10:52 EST Patient Care team information Care Team Personnel Name: NONE, XXXX Position: FT Physician Member Role: Primary Care Physician Address: [facility] Care Team Related Persons Name: STELLA ZAIDI Insurance Providers Guarantor name: PRITI ZAIDI [facility] Plan Information #: 1 Payer: SELF PAY Payer Identifier: [id number] Member Number: NA Group Number: NA Subscriber Identifier: NA Relationship to Subscriber: self Coverage Type: NA Coverage Verification Date: NA Telecom: NA Address:
[2025-03-02 14:10] VITALS: BP 192/102; PULSE 55; TEMP 36.8; O2SAT 95; BMI 17.9
--- OUTSIDE RECORDS SUMMARY | 2025-03-02 14:19 | XMS_ITS | Encounter Summary ---
Author Organization [facility] tem Address [facility]-[id number] [address] [place] [address] Care Team Providers Care Hoop Puncher Name Role Phone Angel Gutierrez Nancy CHAND-CUSTOMER EXPERIENCE ASSOCIATE Primary Care Provider + Encounter Details DateTypeDepartmentCare Team (Latest Contact Info)Eawrpzreggu86/05/2025[facility]phone [facility] [address] [place] [phone] Maria L Brantley CMA Social History Tobacco UseTypesPacks/DayYears UsedDateSmoking Tobacco: Every [...] or more drinks on one occasion?Never5ChildcareAnswer Date EdeqthjsVdcndmqcpDkdciiu95/12/2019EmploymentAnswerDate RecordedEmployment Tyczgkk8508/23/2018Hunger ScreeningAnswerDate RecordedWithin the past 12 months we worried whether our food would run out before we got money to buy more.Never True02/19/2025Within the past 12 months the food we bought just didn't last and we didn't have money to get more.Never True02/19/2025Sex and Gender Information ValueDate RecordedSex Assigned at BirthNot on fileLegal XhkIxww8010/17/2014 11:38 AM EDTGender IdentityNot on fileSexual OrientationNot on filedocumented as of this encounter Miscellaneous Notes * Telephone Encounter - Maria L Brantley CMA - 02/15/2025 12:51 PM EST Patient called and stated his pain medication is not working and he has been taking his medication more. Wanted to know if you wood increase his medication? * Telephone Encounter - KEYANA Gatica - 02/15/2025 12:51 PM EST Please let him know that he has an appointment on the and we can discuss medication managementthen documented in this encounter Plan of Treatment DateTypeDepartmentCare Team (Latest Contact Info)Luqmxllkskn83/22/2025 10:30 AM ESTOffice Visit [facility] - Family [facility] [address] [place] [address] Angel Gutierrez APRN-CNP [address], [address] [address] 03/05/2025 9:00 AM ESTOffice Visit [facility] [address] [place] [phone] Hunter Johnston PA [address] [place] [address] documented as of this encounter Visit Diagnoses Not on filedocumented in this encounter Additional Health Concerns AssessmentNoted TimePHQ-9 Depression Total Score: 8:53 AM EST documented as of this encounter Care Teams Team MemberRelationshipSpecialtyStart DateEnd Date Angel Gutierrez, MEASURER-CUSTOMER EXPERIENCE ASSOCIATE [address] [place] [address] PCP - GeneralInternal Ikfxhhrb96/18/25documented as of this encounter
--- OUTSIDE RECORDS SUMMARY | 2025-03-02 14:19 | XMS_ITS | Encounter Summary ---
Author Organization [facility] Address [facility]-[id number] [address] [place] [address] Care Team Providers Care Metal Room Dental Technician Name Role Phone Angel Gutierrez Nancy CHAND-HRBP Primary Care Provider + Encounter Details DateTypeDepartmentCare Team (Latest Contact Info)Uqvlstgqqtc31/11/2025Orders Only [facility] External Film Storage [facility] [place] [address] External, Scanning Provider Pain (Primary Dx) Social History Tobacco UseTypesPacks/DayYears UsedDateSmoking Tobacco: Every [...] or more drinks on one occasion?Never5ChildcareAnswer Date HoegbjglXlwhllbmrElvrlzt81/12/2019EmploymentAnswerDate RecordedEmployment Barxlun3708/23/2018Hunger ScreeningAnswerDate RecordedWithin the past 12 months we worried whether our food would run out before we got money to buy more.Never True02/19/2025Within the past 12 months the food we bought just didn't last and we didn't have money to get more.Never True02/19/2025Sex and Gender Information ValueDate RecordedSex Assigned at BirthNot on fileLegal HgqRcaz9510/17/2014 11:38 AM EDTGender IdentityNot on fileSexual OrientationNot on filedocumented as of this encounter Plan of Treatment DateTypeDepartmentCare Team (Latest Contact Info)Pfzqavztpol09/22/2025 10:30 AM ESTOffice Visit [facility] Internal Medicine - Family Medicine [address] [place] [address] Angel Gutierrez, CLINICAL ACCOUNT EXECUTIVE-HRBP [address], [address] [place] [address] 03/05/2025 9:[address] [facility] [address] [place] [phone] Hunter Johnston, PA [address] [place], [place] [id number] documented as of this encounter Results * X-ray spine lumbar 2 or 3 views (10/09/2024 9:30 AM EDT)Specimen (Source) Anatomical Location / LateralityCollection Method / VolumeCollection Time Received Time Narrative Authorizing ProviderResult TypeResult StatusScanning Provider ExternalIMG DIAGNOSTIC IMAGING ORDERABLESFinal Result documented in this encounter Visit Diagnoses Diagnosis Pain- Primary Generalized pain documented in this encounter Additional Health Concerns AssessmentNoted TimePHQ-9 Depression Total Score: 3:31 PM EST documented as of this encounter Care Teams Team MemberRelationshipSpecialtyStart DateEnd Date Angel Gutierrez, CLINICAL ACCOUNT EXECUTIVE-HRBP [address] [place] [address] PCP - GeneralInternal Qcboejqi17/18/25documented as of this encounter
--- OUTSIDE RECORDS SUMMARY | 2025-03-02 14:19 | XMS_ITS | Patient Health Record ---
Author Organization [facility] Address [address] [place] [phone] Care Team Providers Care Energy And Conservation Technician Name Role Phone Maria L Iyer Primary Care Provider Allergies No Known Allergies Reason For Referral No Information Medications Medication SIG (Take, Route, Frequency, Duration) Notes Start Date End Date Status OLANZapine 5 MG Tablet 1 tablet Orally twice a d ay; Duration: 30 days 07/14/2023ctive Social History Social History Sexual History:Social InfoQuestionAnswerNotesSexual HistoryHad sex in the past 12 months (vaginal, oral, or anal)?Yes? withWomen only? Use protection?NoHave you ever had a Sexually transmitted disease?NoSection Notes: Reports nicotine use, started at 15, interested in quitting, smoking cessation counseled Denies alcohol Reports cocaine use history last use was 10 years THC started at 17, last use of use was day of arrest Problems Problem Type SNOMED Code ICD Code Onset Dates Problem Status W/U Status Risk Notes Problem Mixed bipolar I disorder ([id number] 00) Bipolar affective disorder, current episode mixed, current episode severity unspecified (F31.60) Activeconfirmed Plan Of Treatment No Information Medical (General) History Medical History History ICD Code HTN, Degenertive disc disease Surgical History Surgery Date(Month/Year) Lumbar neville placement 1999 Appendectomy 1988
--- OUTSIDE RECORDS SUMMARY | 2025-03-02 14:19 | XMS_ITS | Encounter Summary ---
Author Organization [facility] tem Address [facility] [id number] [address] 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; Spinal stenosis, lumbar region with neurogenic claudication Social History Tobacco UseTypesPacks/DayYears UsedDateSmoking Tobacco: Every [...] or more drinks on one occasion?Never5ChildcareAnswer Date NvxmlxkjGdltlitzfRsxcqcc92/12/2019EmploymentAnswerDate RecordedEmployment Chrbtoi0908/23/2018Hunger ScreeningAnswerDate RecordedWithin the past 12 months we worried whether our food would run out before we got money to buy more.Never True02/19/2025Within the past 12 months the food we bought just didn't last and we didn't have money to get more.Never True02/19/2025Sex and Gender Information ValueDate RecordedSex Assigned at BirthNot on fileLegal IwuVrvk0110/17/2014 11:38 AM EDTGender IdentityNot on fileSexual OrientationNot on filedocumented as of this encounter Plan of Treatment DateTypeDepartmentCare Team (Latest Contact Info)Gvwjloqnjsd66/22/2025 10:30 AM ESTOffice Visit [facility] - Family Medicine [address] [place] [address] Angel Gutierrez, MAT TESTER-TAXATION ECONOMIST [address], [place] [id number] 03/05/2025 9:00 AM ESTOffice Visit [facility] [address] [place] [address] Hunter Johnston PA [address] [facility], 2nd Floor [place], [place] [phone] documented as of this encounter Visit Diagnoses Diagnosis Simple chronic bronchitis (CMS-HCC) Simple chronic bronchitis 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
--- OUTSIDE RECORDS SUMMARY | 2025-03-02 14:19 | XMS_ITS | Patient Health Record ---
Author Organization [facility] Address [address] [facility] [address] [place] [address] Care Team Providers Care Marketing Support Specialist Name Role Phone KizzysharminXiomara Primary Care Provider [phone] Allergies No Known Allergies Reason For Referral No Information Medications Medication SIG (Take, Route, Frequency, Duration) Notes Start Date End Date Status Lisinopril 20 MG Tablet 1 tablet Orally Once a d ay Active Plan Of Treatment No Information Insurance Providers Payer Name Payer Address Payer Phone Subscriber Number Group Number Insured Name Patient Relationship to Insured Coverage Start Date Coverage End Date [facility] Medicaid [address] [address] [place] [address] [phone] [id number] Antonio KernSelf - patient is the insured Medications Administered Medication Instructions Date of Administration Dosage Notes DEXAMETHASONE 4MG mgKETOROLAC INJ 30MG mg
--- OUTSIDE RECORDS SUMMARY | 2025-03-02 14:19 | XMS_ITS | Encounter Summary ---
Author Organization [facility] tem Address [facility] [place]-[id number] [address] [place] [address] Care Team Providers Care Pharmacy Informatics Manager Name Role Phone Angel Gutierrez CARPENTER APPRENTICE-FAST FOOD ATTENDANT Primary Care Provider + Encounter Details DateTypeDepartmentCare Team (Latest Contact Info)Onfhudfqigk85/08/2025Orders Only [facility] Internal Medicine - Family Medicine [address] [place] [address] Angel Gutierrez, CARPENTER APPRENTICEFAST FOOD ATTENDANT [address], [facility] [address] [place] [address] Social History Tobacco UseTypesPacks/DayYears UsedDateSmoking Tobacco: Every [...] or more drinks on one occasion?Never5ChildcareAnswer Date XtitqgqxAgjrobnfnLatqglc78/12/2019EmploymentAnswerDate RecordedEmployment Nkgexbl9308/23/2018Hunger ScreeningAnswerDate RecordedWithin the past 12 months we worried whether our food would run out before we got money to buy more.Never True02/19/2025Within the past 12 months the food we bought just didn't last and we didn't have money to get more.Never True02/19/2025Sex and Gender Information ValueDate RecordedSex Assigned at BirthNot on fileLegal NucBoos2910/17/2014 11:38 AM EDTGender IdentityNot on fileSexual OrientationNot on filedocumented as of this encounter Progress Notes * KEYANA Gatica - 02/18/2025 10:54 AM EST OARRS/MAPPS was reviewed by KEYANA Gatica today. Patient should have enough pain medications to last him until his office visit. We will hold off on increasing his pain medication until I can see him for follow up. I will also need to review the notes from the crm specialist prior to increasing his dose KEYANA Gatica 02/18/25 1059 documented in this encounter Plan of Treatment DateTypeDepartmentCare Team (Latest Contact Info)Npjygpqbvfh62/22/2025 10:30 AM ESTOffice Visit [facility] - Family Medicine [address] [place] [address] Angel Gutierrez APRN-CNP [address], [address] [address] 03/05/2025 9:00 AM ESTOffice Visit [facility] [address] [place] [address] Hunter Johnston PA [address], [address]nd [address] [place], [place] [address] documented as of this encounter Visit Diagnoses Not on filedocumented in this encounter Additional Health Concerns AssessmentNoted TimePHQ-9 Depression Total Score: 1811/ 8:53 AM EST documented as of this encounter Care Teams Team MemberRelationshipSpecialtyStart DateEnd Date Angel Gutierrez, CARPENTER APPRENTICE-FAST FOOD ATTENDANT [address] [place] [address] PCP - GeneralInternal Pohratzc72/18/25documented as of this encounter
--- OUTSIDE RECORDS SUMMARY | 2025-03-02 14:19 | XMS_ITS | Encounter Summary ---
Author Organization [facility] tem Address [id number] [address] [place] [address] Care Team Providers Care Hardware Engineering Manager Name Role Phone Angel Gutierrez Nancy CHAND-ADULT NURSE PRACTITIONER Primary Care Provider + Encounter Details DateTypeDepartmentCare Team (Latest Contact Info)Rmlcgargshz27/16/2025Orders Only [facility] [address] [place] [address] Ref Prov, [place] [address] Social History Tobacco UseTypesPacks/DayYears UsedDateSmoking Tobacco: Every [...] or more drinks on one occasion?Never5ChildcareAnswer Date IyfgzgbsWavyibcnnQlnaqma45/12/2019EmploymentAnswerDate RecordedEmployment Hymcino8008/23/2018Hunger ScreeningAnswerDate RecordedWithin the past 12 months we worried whether our food would run out before we got money to buy more.Never True02/19/2025Within the past 12 months the food we bought just didn't last and we didn't have money to get more.Never True02/19/2025Sex and Gender Information ValueDate RecordedSex Assigned at BirthNot on fileLegal MjsZdzv2810/17/2014 11:38 AM EDTGender IdentityNot on fileSexual OrientationNot on filedocumented as of this encounter Plan of Treatment DateTypeDepartmentCare Team (Latest Contact Info)Tmxojvruzaj08/22/2025 10:30 AM ESTOffice Visit [facility] Internal Medicine - Family Medicine [address] [place] [address] Angel Gutierrez, SUPERINTENDENT TRANSPORTATION-ADULT NURSE PRACTITIONER [address], [facility] [address] [place] [address] 03/05/2025 9:00 AM ESTOffice Visit [facility] [address] [place] [address] Hunter Johnston, SIMON [address], 2[address] [place], [place] [address] documented as of this encounter Procedures Procedure NamePriorityDate/TimeAssociated DiagnosisCommentsCT LUMBAR SPINE WO QXLQFqrxjoq91/25/2025 9:22 AM ESTdocumented in this encounter Results * CT lumbar spine without contrast (02/05/2025 9:22 AM EST)Anatomical Region LateralityModalityMSK, Neuro, Spine, L-spine, Spine CoveraN/AComputed Tomography Narrative Authorizing ProviderResult TypeResult StatusNot In System Ref ProvIMG CT ORDERABLESFinal Result documented in this encounter Visit Diagnoses Not on filedocumented in this encounter Additional Health Concerns AssessmentNoted TimePHQ-9 Depression Total Score: 3:31 PM EST documented as of this encounter Care Teams Team MemberRelationshipSpecialtyStart DateEnd Date Angel Gutierrez, SUPERINTENDENT TRANSPORTATION-ADULT NURSE PRACTITIONER [address] [address] PCP - GeneralInternal Hduosncn86/18/25documented as of this encounter
--- OUTSIDE RECORDS SUMMARY | 2025-03-02 14:19 | XMS_ITS | Clinical Summary ---
Author Organization [employer] tem Address [facility] [id number] [address] [place] [address] Care Team Providers Care [place] Carver Name Role Phone Angel Gutierrez APRN-FISHER CRAB Primary Care Provider + Allergies No known active allergies Medications MedicationSigDispense QuantityRefillsLast FilledStart DateEnd DateStatus lisinopriL (PRINIVIL,ZESTRIL) 20 mg tablet Indications:Primary hypertensionTake 1 tablet (20 mg total) by mouth in the morning. 30 tablet 5Active albuterol (PROVENTIL HFA;VENTOLIN HFA) 90 mcg/actuation inhaler Indications:Simple chronic bronchitis (CMS-HCC)Inhale 2 puffs every 6 (six) hours as needed for wheezing. 18 g 5Active cyclobenzaprine (FLEXERIL) 10 mg tablet Indications:Degenerative disc disease (DDD) of lumbar region with discogenic back pain and leg painTake 1 tablet (10 mg total) by mouth every 8 (eight) hours as needed for muscle spasms. 30 tablet 5Active naproxen (NAPROSYN) 500 mg tablet Indications:Degenerative disc disease (DDD) of lumbar region with discogenic back pain and leg pain,Spinal stenosis, lumbar region with neurogenic claudicationTake 1 tablet (500 mg total) by mouth in the morning and 1 tablet (500 mg total) in the evening. Take with meals. 60 tablet 5Active acetaminophen (TYLENOL EXTRA STRENGTH) 500 mg tablet Indications:Degenerative disc disease (DDD) of lumbar region with discogenic back pain and leg pain,Spinal stenosis, lumbar region with neurogenic claudicationTake 2 tablets (1,000 mg total) by mouth every 6 (six) hours as needed for pain. 100 tablet 5Active albuterol (PROVENTIL,VENTOLIN) 2.5 mg /3 mL (0.083 %) nebulizer solution Indications:Simple chronic bronchitis ([facility]-HCC)Inhale 3 mL (2.5 mg total) by nebulization every 4 (four) hours as needed for wheezing. 75 mL 5Active predniSONE (DELTASONE) 50 mg tablet Indications:Degenerative disc disease (DDD) of lumbar region with discogenic back pain and leg pain,Spinal stenosis, lumbar region with neurogenic claudicationTake 1 tablet (50 mg total) by mouth in the morning for 5 days. 5 tablet /Expired oxyCODONE (ROXICODONE) 5 mg immediate release tablet Indications:Degenerative disc disease (DDD) of lumbar region with discogenic back pain and leg pain,Spinal stenosis, lumbar region with neurogenic claudicationTake 1 tablet (5 mg total) by mouth every 6 (six) hours as needed for pain for up to 7 days. Max Daily Amount: 20 mg 28 tablet /Discontinued(Reorder) oxyCODONE (ROXICODONE) 5 mg immediate release tablet Indications:Degenerative disc disease (DDD) of lumbar region with discogenic back pain and leg pain,Spinal stenosis, lumbar region with neurogenic claudicationTake 1 tablet (5 mg total) by mouth every 6 (six) hours as needed for pain for up to 14 days. Max Daily Amount: 20 mg 56 tablet Discontinued(Reorder) oxyCODONE (ROXICODONE) 5 mg immediate release tablet Indications:Degenerative disc disease (DDD) of lumbar region with discogenic back pain and leg pain,Spinal stenosis, lumbar region with neurogenic claudicationTake 2 tablets (10 mg total) by mouth every 6 (six) hours as needed for pain for up to 7 days. Max Daily Amount: 40 mg 56 tablet /Expired Active Problems ProblemNoted DateDiagnosed DateLumbar cwsbzsamvezuw58/18/2025Degenerative disc disease (DDD) of lumbar region with discogenic back pain and leg pain01/29/2025 Acute exacerbation of chronic low back pain01/29/2025Strain of lumbar region 01/29/2025Spinal stenosis, lumbar region with neurogenic ssuxkyxxipty42/21/2019 Lumbar disc xnnyyacahz20/15/1024Drttxskixpp19/15/2019 Encounters DateTypeDepartmentCare AavxFkvvkvgzfqm86/16/2025Refill [facility] - Family Medicine [address] [place] [address] Angel Gutierrez, SALES STORE CHECKER-FISHER CRAB Simple chronic bronchitis ([facility]-HCC); Degenerative disc disease (DDD) of lumbar region with discogenic back pain and leg pain; Spinal stenosis, lumbar region with neurogenic adghwmmbwksl56/16/2025Orders Only [facility] - Family Medicine [address] [place] [address] Ref Prov, Not In System 02/21/2025Orders Only [facility] [employer] [address] [place] [address] External, Scanning Provider Pain (Primary Dx)02/19/2025 3:40 PM ESTOffice Visit [facility] - Family Medicine [address] [place] [address] Angel Gutierrez, SALES STORE CHECKER-FISHER CRAB Degenerative disc disease (DDD) of lumbar region with discogenic back pain and leg pain (Primary Dx); Lumbar radiculopathy; Spinal stenosis, lumbar region with neurogenic claudication; Primary kuziokklsxjg12/09/4092Tszzga23/08/2025Orders Only [facility] - Family Medicine [address] [place] [address] Angel Gutierrez, SALES STORE CHECKER-FISHER CRAB 02/15/2025Telephone [facility] - Family Medicine [address] [place] [address] Maria L Brantley CMA 02/06/2025 9:00 AM ESTOffice Visit [facility] - [facility] Medicine [address] [place] [address] Angel Gutierrez, MANNIE-SANIA Degenerative disc disease (DDD) of lumbar region with discogenic back pain and leg pain (Primary Dx); Spinal stenosis, lumbar region with neurogenic claudication; Primary hypertension; Smoker; Simple chronic bronchitis ([facility]-HCC); Moderate protein-calorie wmllsboatidw68/26/2025Results Follow-Up [facility] - [facility] [address] [place] [address] Angel Gutierrez, MANNIE-SANIA CT lumbar spine without mcxtmcob51/26/2025Orders Only [facility] - [facility] Medicine [address] [place] [address] Vani Cordoba CMA Degenerative disc disease (DDD) of lumbar region with discogenic back pain and leg pain; Lumbar radiculopathy; Spinal stenosis, lumbar region with neurogenic jllqpegucdjz30/26/2025Telephone [facility] [address] [place] [address] Amy West CMA 02/06/20259207Hezhbo58/25/2025ncillary Procedure [facility] [employer] [address] [place] [address] Back pain, unspecified back location, unspecified back pain laterality, unspecified ghegsdsehv28/24/2025Orders Only [facility] [address] [address] Maria L Lozada CNA Back pain, unspecified back location, unspecified back pain laterality, unspecified chronicity (Primary Dx)01/31/2025Orders Only [facility] - [facility] Medicine [address] [place] [address] Angel Gutierrez, MANNIE-SANIA Degenerative disc disease (DDD) of lumbar region with discogenic back pain and leg pain (Primary Dx); Lumbar radiculopathy; Spinal stenosis, lumbar region with neurogenic jmocfwduzmdt97/20/2025Telephone [facility] [address] [place] [address] Vani Cordoba CMA 01/29/2025 3:15 PM ESTOffice Visit [facility] [address] [place] [address] Angel Gutierrez, SALES STORE CHECKER-FISHER CRAB Degenerative disc disease (DDD) of lumbar region with discogenic back pain and leg pain (Primary Dx); Lumbar radiculopathy; Spinal stenosis, lumbar region with neurogenic claudication; Acute exacerbation of chronic low back pain; Simple chronic bronchitis (CMS-HCC); Primary hypertension; Hboolf2401/29/20254961Mzptkz57/23/2025ncillary Procedure [facility] [place] [address] Back pain, unspecified back location, unspecified back pain laterality, unspecified chronicityfrom Last 3 Months Family History Medical HistoryRelationNameCommentsHypertensionFatherLiver cancerMotherRelation NameStatusCommentsFatherAliveMotherDeceased Social History Tobacco UseTypesPacks/DayYears UsedDateSmoking Tobacco: Every DayCigarettes Smokeless Tobacco: Never Tobacco Cessation:Ready to Q uit: Not Asked; Counseling Given: Not Answered Alcohol UseStandard Drinks/WeekCommentsNever0 (1 standard drink = 0.6 oz pure alcohol)PHQ-2AnswerDate RecordedTotal Wrjna54104/22/2024UDIT-CAnswerDate Recorded Q1: How often do you have a drink containing alcohol?Never01/29/2025Q2: How many drinks containing alcohol do you have on a typical day when you are drinking? Patient does not drink01/29/2025Q3: How often do you have six or more drinks on one occasion?Never01/29/2025hildcareAnswerDate RecordedChildcareUnknown 08/23/2018EmploymentAnswerDate DhbuuwhqRpmifhxmriLmpcvdh81/12/2019Hunger ScreeningAnswerDate RecordedWithin the past 12 months we worried whether our food would run out before we got money to buy more.Never True02/19/2025Within the past 12 months the food we bought just didn't last and we didn't have money to get more.Never True02/19/2025Sex and Gender InformationValueDate RecordedSex Assigned at BirthNot on fileLegal NwoHngb1210/17/2014 11:38 AM EDTGender Identity Not on fileSexual OrientationNot on file Last Filed Vital Signs Vital SignReadingTime TakenCommentsBlood Xbgesadh605/9802/19/2025 3:30 PM EST Luseo386402/19/2025 3:30 PM NOINdabbnxiymq18.4 ??C (97.6 ??F)02/19/2025 3:30 PM ESTRespiratory Gbol317604/22/2024 3:30 PM ESTOxygen Sxcjxwuyph174%02/19/2025 3:30 PM ESTInhaled Oxygen Concentration--Druhgu45.2 kg (126 lb)02/19/2025 3:30 PM EST Jffkdf162.8 cm (5' 10 )02/19/2025 3:30 PM ESTBody Mass Index18.0802/19/2025 3:30 PM EST Plan of Treatment DateTypeDepartmentCare Team (Latest Contact Info)Ayjliwvghcu47/22/2025 10:30 AM ESTOffice Visit [facility] - [facility] Medicine [address] [place] [address] Angel Gutierrez, SALES STORE CHECKER-FISHER CRAB [address], [address] [place] [address] 03/05/2025 9:00 AM ESTOffice Visit [facility] [address] [place] [address] Hunter Johnston, PA [address], [address] [place] [address] Health MaintenanceDue DateLast DoneCommentsTobacco Hahfprlxxr56/01/1973Adult BMI Follow Up Plan1990Zoster (Shingles) Vaccine (1 of 2)2022Influenza Itqmcfj38/01/91227811/29/2022, 01/19/2018, 12/11/2017, Additional history exists Adult BMI Clsdhvmjo24Depression Mizhhcepo68 Tobacco Zujqnifvh45DTaP,Tdap and Td Vaccines (3 - Td or Tdap) , 03/29/2007 Medical Devices Not on file Procedures Procedure NamePriorityDate/TimeAssociated DiagnosisCommentsCT LUMBAR SPINE WO OCGNVHAB05/26/2025 11:17 AM EST Degenerative disc disease (DDD) of lumbar region with discogenic back pain and leg pain Lumbar radiculopathy Spinal stenosis, lumbar region with neurogenic claudication CT LUMBAR SPINE WO WRONHclmuoj90/25/2025 9:22 AM ESTCT LUMBAR SPINE WO CONT Jjneyms0802/05/2025 12:00 AM EST Back pain, unspecified back location, unspecified back pain laterality, unspecified chronicity CT LUMBAR SPINE WO XHANHyvbvcr87/23/2025 12:00 AM EDT Back pain, unspecified back location, unspecified back pain laterality, unspecified chronicity from Last 3 Months Results * CT lumbar spine without contrast (02/06/2025 11:17 AM EST) Only the most recent of4 resultswithin the time period is included. Anatomical RegionLateralityModalityMSK, Neuro, Spine, L-spine, Spine CoveraN/A Computed Tomography Narrative Authorizing ProviderResult TypeResult StatusAngel Gutierrez SALES STORE CHECKER-SANIAIMG CT ORDERABLESFinal Result from Last 3 Months Care Teams Team MemberRelationshipSpecialtyStart DateEnd Date Angel Gutierrez, MANNIE-SANIA [address] [place] [address] PCP - GeneralInternal Qnkwjsga76/18/25
--- OUTSIDE RECORDS SUMMARY | 2025-03-02 14:19 | XMS_ITS | Encounter Summary ---
Author Organization [employer] [facility] tem Address [facility] [place]-[id number] [address] [place] [address] Care Team Providers Care Perioperative Manager Name Role Phone Angel Gutierrez Nancy CHAND-POULTRY HUSBANDRY WORKER Primary Care Provider + Encounter Details DateTypeDepartmentCare Team (Latest Contact Info)Pxgpyxedmta04/09/2025Travel Social History Tobacco UseTypesPacks/DayYears UsedDateSmoking Tobacco: Every [...] or more drinks on one occasion?Never5ChildcareAnswer Date KcrsjnalItgpetfbzDolzggc70/12/2019EmploymentAnswerDate RecordedEmployment Bihrnly0308/23/2018Hunger ScreeningAnswerDate RecordedWithin the past 12 months we worried whether our food would run out before we got money to buy more.Never True02/19/2025Within the past 12 months the food we bought just didn't last and we didn't have money to get more.Never True02/19/2025Sex and Gender Information ValueDate RecordedSex Assigned at BirthNot on fileLegal UnlWalr4710/17/2014 11:38 AM EDTGender IdentityNot on fileSexual OrientationNot on filedocumented as of this encounter Plan of Treatment DateTypeDepartmentCare Team (Latest Contact Info)Bnckpqjbuqe86/22/2025 10:30 AM ESTOffice Visit [facility] [address] [place] [address] Angel Gutierrez, CNC MILL PROGRAMMER-POULTRY HUSBANDRY WORKER [address], [address] [address] 03/05/2025 9:00 AM ESTOffice Visit [facility] [address] [place] [address] Hunter Johnston, SIMON [address] [place] [address] documented as of this encounter Visit Diagnoses Not on filedocumented in this encounter Additional Health Concerns AssessmentNoted TimePHQ-9 Depression Total Score: 3:31 PM EST documented as of this encounter Care Teams Team MemberRelationshipSpecialtyStart DateEnd Date Angel Gutierrez, CNC MILL PROGRAMMER-POULTRY HUSBANDRY WORKER [address] [place] [address] PCP - GeneralInternal Uaddlguk01/18/25documented as of this encounter
--- OUTSIDE RECORDS SUMMARY | 2025-03-02 14:20 | XMS_ITS | Patient Health Record ---
Author Organization [facility] es Address [address] [facility] [place] [address] Care Team Providers Care Straw Hat Presser Name Role Phone XXXKcésaraugust Primary Care Provider Reason For Referral No Information Medications Medication SIG (Take, Route, Frequency, Duration) Notes Start Date End Date Status Percocet 5-325 mg 30 5-325 mg Tablets on e or two tablets orally every four to six hours prn pain; Duration: 10 10/08/2014Not-Taking/PRNIbuprofen 600 MG Tablet1 tablet Orally Three times a day ActiveLisinopril 10 MG Tablet1 tablet Orally Once a day; Duration: 30 day(s) 10/09/2014ctiveHydrochlorothiazide-25 mg 25 MG Tablet1 tablet Orally Once a day; Duration: 30 day(s)10/09/2014ctivehydroCHLOROthiazide 25 MG Tablet1 tablet Orally Once a dayActiveLisinopril 10 MG Tablet1 tablet Orally Once a dayActive Cephalexin 500 MG Capsule1 capsule Orally Twice a dayNot-Taking/PRNAlbuterol Sulfate (2.5 MG/3ML) 0.083% Nebulization Solution3 ml Inhalation Three times a day10/09/2014ctiveProAir HFA 108 (90 Base) MCG/ACT Aerosol Solution2 puffs as needed Inhalation every 4 hrs10/09/2014ctive Social History Section Notes: 07/26/14: SMOKES 1/2 PPD, NO ETHOH, NO ILLEGAL DRUGS 07/26/14: SMOKES 1/2 PPD, NO ETHOH, NO ILLEGAL DRUGS 07/26/14: SMOKES 1/2 PPD, NO ETHOH, NO ILLEGAL DRUGS Problems Problem Type SNOMED Code ICD Code Onset Dates Problem Status W/U Status Risk Notes Problem Benign essential hyp ertension (9214292) Essential hypertension, benign (401.1) ActiveconfirmedProblemAsthma without status asthmaticus (50562252)Asthma, unspecified, unspecified status (493.90)ActiveconfirmedProblemClosed fracture of distal phalanx of finger (85141727)Closed fracture of distal phalanx or phalanges of hand (816.02)Activeconfirmed Plan Of Treatment No Information Insurance Providers Payer Name Payer Address Payer Phone Subscriber Number Group Number Insured Name Patient Relationship to Insured Coverage Start Date Coverage End Date [employer] [address] [place] [address] [id number] Christopher ZAIDI - patient is the insuredzMEDICAID [facility] after [employer]- [employer] [address] [place] [id number] Christopher ZAIDI - patient is the insured Medical (General) History Medical History History ICD Code HTN Surgical History Surgery Date(Month/Year) APPENDECTOMY-15 YRS OLD Hospitalization History Reason Date(Month/Year) kidney infection 2012
--- NOTE | 2025-03-02 14:46 | ED.GENADUL1 ---
HPI HPI - General Adult General Chief complaint: Back Pain/Injury Stated complaint: BACK PAIN Time Seen by Provider: 03/02/25 14:39 Source: patient Mode of arrival: walk-in Limitations: no limitations History of Present Illness HPI narrative: 54-year-old male presented to the emergency department for back pain. He has pain in his left lower back and is seeing his family doctor about this. He is getting into pain management and spine care and an appointment was canceled on him and he ran out of his oxycodone. No injury or weakness or numbness in his legs. Related Data Home Medications ?Medication ?Instructions ?Recorded ?Confirmed lisinopril 10 mg tablet 10 mg PO DAILY 07/20/24 10/09/24 Previous Rx's ?Medication ?Instructions ?Recorded methocarbamol 500 mg tablet 500 mg PO Q8H PRN muscle pain #10 07/20/24 tabs hydrocodone 5 mg-acetaminophen 325 1 tab PO Q6H PRN pain 5 days #20 10/09/24 mg tablet tabs methocarbamol 750 mg tablet 750 mg PO Q8H #20 tabs 10/09/24 oxycodone-acetaminophen 5 mg-325 1 tab PO Q6H PRN pain 3 days #12 03/02/25 mg tablet (Percocet) tabs Allergies Allergy/AdvReac Type Severity Reaction Status Date / Time No Known Drug Allergies Allergy Verified 03/02/25 14:10 Opioid HPI Opioid Management Most Recent Opioid Data: Last Pain Scale 10 Today, 14:10 Review of Systems ROS Narrative A ten point review of systems is negative except as noted above. PFSH PFSH Social History Little interest or pleasure in doing things: not at all Feeling down, depressed, or hopeless: not at all Exam Narrative Exam Narrative: Nurses note and vital signs reviewed General:The patient appears well and in no apparent distress. Patient is resting comfortably on cart. Skin:Warm, dry, no pallor noted.There is no rash noted. Head:Normocephalic, atraumatic Eye: Normal conjunctiva, no drainage Ears, Nose, Mouth, and Throat: oral mucosa is moist. Nares patent. Cardiovascular:Regular Rate and Rhythm Respiratory:Patient is in no distress, no accessory muscle use, lungs are clear to auscultation, no wheezing, rales or rhonchi Back: Palpable tenderness. No bruise or rash. GI: Soft and nontender Musculoskeletal: The patient has no evidence of calf tenderness, no pitting edema, symmetrical pulses noted bilaterally Neurological:A&O, normal speech: Upper and lower extremity strength is 5 out of 5 and symmetric Psychiatric:Cooperative Constitutional Vital Signs, click to edit/add: Last Vital Signs Temp 98.2 F 03/02/25 14:10 Pulse 55 L 03/02/25 14:10 Resp 20 03/02/25 14:10 BP 192/102 H 03/02/25 14:10 Pulse Ox 95 03/02/25 14:10 O2 Del Method Room Air 03/02/25 14:10 Course Vital Signs Vital signs: Vital Signs Temperature 98.2 F 03/02/25 14:10 Pulse Rate 55 L 03/02/25 14:10 Respiratory Rate 20 03/02/25 14:10 Blood Pressure 192/102 H 03/02/25 14:10 Pulse Oximetry 95 03/02/25 14:10 Oxygen Delivery Method Room Air 03/02/25 14:10 Temperature 98.2 F 03/02/25 14:10 Pulse Rate 55 L 03/02/25 14:10 Respiratory Rate 20 03/02/25 14:10 Blood Pressure 192/102 H 03/02/25 14:10 Pulse Oximetry 95 03/02/25 14:10 Oxygen Delivery Method Room Air 03/02/25 14:10 Medical Decision Making MDM Narrative Medical decision making narrative: Was provided a prescription for 12 Percocet tablets and will follow-up with his doctor. He he was advised that future prescriptions would need to come from his pain management doctor when he sees him or his family doctor. Differential Diagnosis Differential Diagnosis: Chronic pain Discharge Plan Discharge Chief Complaint: Back Pain/Injury Clinical Impression: Chronic back pain Patient Disposition: Home, Self-Care Time of Disposition Decision: 14:43 Condition: Good Mode of Transportation: Private Vehicle Prescriptions / Home Meds: New oxycodone-acetaminophen [Percocet] 5-325 mg tablet 1 tab PO Q6H PRN (Reason: pain) 3 Days Qty: 12 0RF No Action lisinopril 10 mg tablet 10 mg PO DAILY methocarbamol 500 mg tablet 500 mg PO Q8H PRN (Reason: muscle pain) Qty: 10 0RF hydrocodone-acetaminophen 5-325 mg tablet 1 tab PO Q6H PRN (Reason: pain) 5 Days Qty: 20 0RF methocarbamol 750 mg tablet 750 mg PO Q8H Qty: 20 0RF Print Language: Afghan Instructions: Back Pain (ED) Additional Instructions: Follow-up with your PCP. Future prescriptions will need to come from your family doctor or pain management. Referrals: LACHELLE CHAHAL APRN [Primary Care Provider] - 1 week
== END 2025-03-02 15:10 | disposition home or self-care (01) ==
PROVIDERS: Emergency Provider Emergency Medicine; PCP Nurse Practitioner Family
DX: M54.50 Low back pain, unspecified (principal); G89.29 Other chronic pain
CPT/HCPCS: 99283